=== PATIENT | female | born 1995 | race African-American/Black ===

== ENCOUNTER 2018-09-23 15:58 | Inpatient (IN) ==
[2018-09-23] MEDS ORDERED: DINOPROSTONE VAG GEL 10 MG SYRINGE VAG ONE ×2 (16:07→17:17)
[2018-09-23] MEDS: LACTATED RINGERS 1,000 ML IV SCH ×2 (17:10→23:00)
[2018-09-23] MEDS ORDERED: ONDANSETRON 4 MG/2 ML VIAL IV PRN (17:28)
[2018-09-23] MEDS ORDERED: MEPERIDINE 50 MG/1 ML VIAL IM PRN (17:28)
[2018-09-23] MEDS ORDERED: LACTATED RINGERS 250 ML IV ONE (17:28)
[2018-09-23 18:36] LABS: Basophils % 0.3 % (0.0-0.8); Eosinophils # 0.1 10*3/uL (0.0-0.87); Eosinophils % 0.5 % (0.00-10.9); Hematocrit 35.6 VOL% (35.7-47.0); Hemoglobin 11.9 GM/DL (12.0-16.0); Immature Granulocytes % 2.3 %; Immature Granulocytes Absolute 0.24 #; Lymphocytes # 1.8 10*3/uL (1.4-4.0); Lymphocytes % 17.7 % (21.3-54.2); Mean Corpuscular HGB Conc 33.4 GM/DL (32-36); Mean Corpuscular Hemoglobin 33 PG (27-34); Mean Corpuscular Volume 99.4 FL (87-102); Mean Platelet Volume 10.8 FL (9.6-12.0); Monocytes # 0.8 10*3/uL (0.11-0.8); Monocytes % 7.9 % (1.7-12.7); Neutrophils # 7.4 10*3/uL (1.4-7.4); Neutrophils % 71.3 % (38.7-73.9); Platelet Count 208 T/CUMM (130-400); Red Blood Count 3.58 MC/CUMM (3.8-5.5); Red Cell Distribution Width 12.6 % (9.3-17.3); White Blood Count 10.3 T/CUMM (4-12)
[2018-09-23 18:54] LABS: Alanine Aminotransferase 16 U/L (13-56); Albumin 2.9 G/DL (3.4-5.0); Alkaline Phosphatase 267 U/L (45-117); Aspartate Amino Transferase 14 U/L (0-37); Bilirubin,Total < 0.39 MG/DL (0.2-1.0); Blood Urea Nitrogen 7 MG/DL (7-18); Calcium 8.6 MG/DL (8.5-10.1); Glucose 69 MG/DL (74-106); Osmolality,Calculated 270.7 MOS/KG (273-304); Potassium 3.6 MMOL/L (3.5-5.1); Sodium 138 MMOL/L (136-145); Total Protein 6.7 G/DL (6.4-8.3)
[2018-09-23] MEDS ORDERED: MEPERIDINE 50 MG/1 ML VIAL IV PRN (20:00)
[2018-09-23] MEDS ORDERED: valACYclovir 500 MG TABLET PO SCH (21:00)
[2018-09-23] MEDS ORDERED: PROMETHAZINE 25 MG/1 ML VIAL IM ONE (22:02)
[2018-09-23] MEDS ORDERED: NALOXONE 0.4 MG/ML VIAL IV PRN (22:02)
[2018-09-23] MEDS ORDERED: ePHEDrine 50 MG/ML AMP IV PRN (22:02)
[2018-09-23] MEDS ORDERED: CITRIC ACID/SODIUM CITRATE 30 ML UDCUP PO ONE (22:02)
[2018-09-23] MEDS ORDERED: diphenhydrAMINE 50 MG/1 ML VIAL IV PRN (22:02)
[2018-09-23] MEDS ORDERED: FAMOTIDINE 20 MG/2 ML VIAL IV ONE (22:02)
[2018-09-23] MEDS ORDERED: hydrOXYzine HCL 25 MG/1 ML VIAL IM PRN (22:02)
[2018-09-23] MEDS ORDERED: fentaNYL 2 MCG/ROPIV 0.2% EPID 100 ML EPIDURAL SCH (22:30)
[2018-09-24] MEDS ORDERED: miSOPROStol 200 MCG TABLET ONE (04:02)
[2018-09-24] MEDS ORDERED: LIDOCAINE 1% 50 ML VIAL ONE (04:02)
[2018-09-24] MEDS ORDERED: METHYLERGONOVINE 0.2 MG/1 ML AMP ONE (04:03)
[2018-09-24] MEDS ORDERED: OXYTOCIN/LR 30 UNIT/1,000 ML BAG IV ONE (04:15)
[2018-09-24] MEDS ORDERED: BISACODYL 10 MG SUPP RECTAL PRN (04:38)
[2018-09-24] MEDS ORDERED: HYDROCORTISONE 2.5% RECTAL CREAM 30 GM TUBE TOP PRN (04:38)
[2018-09-24] MEDS ORDERED: BENZOCAINE 20%/MENTHOL 0.5% SPRAY 56 GM CAN TOP PRN (04:38)
[2018-09-24] MEDS ORDERED: LANOLIN 50% CREAM 0.3 OZ TUBE TOP PRN (04:38)
[2018-09-24] MEDS ORDERED: MEASLES/MUMPS/RUBELLA VACCINE 0.5 ML VIAL SUBCUT ONE (04:38)
[2018-09-24] MEDS ORDERED: DIPH/TET/ACEL PERT BOOSTER VACCINE 0.5 ML VIAL IM ONE (04:38)
[2018-09-24] MEDS ORDERED: OXYTOCIN/LR 20 UNIT/1,000 ML BAG IV ONE (04:38)
[2018-09-24] MEDS ORDERED: WITCH HAZEL PADS 100/JAR TOP PRN (04:38)
[2018-09-24] MEDS ORDERED: ACETAMINOPHEN 325 MG TABLET PO PRN (04:38)
[2018-09-24] MEDS ORDERED: RHO(D) IMMUNE GLOBULIN 300 MCG SYRINGE IM ONE (04:38)
[2018-09-24 04:50] LABS: Cord Arterial Blood HCO3 20.4 MMOL/L
[2018-09-24 04:53] LABS: Cord Venous Blood HCO3 19.6 MMOL/L; Cord Venous Blood PCO2 34.3 MMHG; Cord Venous Blood PO2 34.1 MMHG
[2018-09-24] MEDS: oxyCODONE/ACETAMINOPHEN 5-325 MG TABLET PO PRN ×2 (07:33→22:05)
[2018-09-24] MEDS: IBUPROFEN 800 MG TABLET PO PRN ×2 (07:33→22:05)
[2018-09-24] MEDS: ONDANSETRON 4 MG/2 ML VIAL IV PRN ×2 (07:40→14:50)
[2018-09-24] MEDS: DOCUSATE SODIUM 100 MG CAPSULE PO SCH ×2 (19:00→20:36)
[2018-09-25] MEDS: IBUPROFEN 800 MG TABLET PO PRN ×2 (04:07→19:49)
[2018-09-25 04:37] LABS: Basophils % 0.3 % (0.0-0.8); Eosinophils # 0.1 10*3/uL (0.0-0.87); Eosinophils % 0.9 % (0.00-10.9); Hematocrit 31.9 VOL% (35.7-47.0); Hemoglobin 10.7 GM/DL (12.0-16.0); Immature Granulocytes % 1.2 %; Immature Granulocytes Absolute 0.14 #; Lymphocytes # 2.3 10*3/uL (1.4-4.0); Lymphocytes % 19.9 % (21.3-54.2); Mean Corpuscular HGB Conc 33.5 GM/DL (32-36); Mean Corpuscular Hemoglobin 33 PG (27-34); Mean Corpuscular Volume 98.8 FL (87-102); Mean Platelet Volume 10.6 FL (9.6-12.0); Monocytes # 0.9 10*3/uL (0.11-0.8); Monocytes % 7.7 % (1.7-12.7); Neutrophils # 7.9 10*3/uL (1.4-7.4); Platelet Count 193 T/CUMM (130-400); Red Blood Count 3.23 MC/CUMM (3.8-5.5); Red Cell Distribution Width 12.5 % (9.3-17.3); White Blood Count 11.3 T/CUMM (4-12)
[2018-09-25] MEDS ORDERED: LACTATED RINGERS 1,000 ML IV ONE (07:12)
[2018-09-25] MEDS ORDERED: SUMAtriptan 6 MG/0.5 ML VIAL SUBCUT ONE (07:12)
[2018-09-25] MEDS ORDERED: BUTALBITAL/ACETAMIN/CAFFEINE 50-325-40 MG TABLET PO ONE (07:30)
[2018-09-25] MEDS: DOCUSATE SODIUM 100 MG CAPSULE PO SCH ×2 (08:46→19:51)
[2018-09-25] MEDS ORDERED: CYCLOBENZAPRINE 10 MG TABLET PO STA (10:18)
[2018-09-25] MEDS: BUTALBITAL/ACETAMIN/CAFFEINE 50-325-40 MG TABLET PO SCH ×2 (15:31→23:44)
[2018-09-25] MEDS: SODIUM CHLORIDE 0.9% 1,000 ML IV SCH ×2 (15:33→23:47)
[2018-09-25] MEDS: CYCLOBENZAPRINE 10 MG TABLET PO PRN (18:51)
[2018-09-25] MEDS: oxyCODONE/ACETAMINOPHEN 5-325 MG TABLET PO PRN (19:50)
[2018-09-25] MEDS ORDERED: SIMETHICONE CHEW 80 MG TABLET PO PRN (23:48)
[2018-09-26] MEDS ORDERED: SIMETHICONE CHEW 80 MG TABLET PO SCH
[2018-09-26] MEDS: DOCUSATE SODIUM 100 MG CAPSULE PO SCH ×3 (00:02→11:36)
[2018-09-26] MEDS: IBUPROFEN 800 MG TABLET PO PRN (01:30)
[2018-09-26] MEDS: oxyCODONE/ACETAMINOPHEN 5-325 MG TABLET PO PRN (01:31)
[2018-09-26] MEDS: BUTALBITAL/ACETAMIN/CAFFEINE 50-325-40 MG TABLET PO SCH (07:19)
[2018-09-26] MEDS: CYCLOBENZAPRINE 10 MG TABLET PO PRN (07:20)
[2018-09-26] MEDS: SODIUM CHLORIDE 0.9% 1,000 ML IV SCH (07:27)
[2018-09-26 07:58] VITALS: BP 113/71
== END 2018-09-26 11:15 | disposition home or self-care (01) | DRG 560 ==
LOC: N.LD 15:58 → N.OB 09-24 09:12
PROVIDERS: ADMIT Obstetrics & Gynecology; ATTEND Obstetrics & Gynecology